=== PATIENT | female | born 1995 | race Two or more races ===

== ENCOUNTER → 2022-11-20 | Outpatient (CLI) | payer OTHER, SELFPAY ==
--- NOTE | 2022-11-20 12:00 | LES_PTH ---
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 Salivary gland tissue with mild chronic inflammation. AM:augie 11/22/2022 MICROSCOPIC DESCRIPTION Slides are reviewed. GROSS DESCRIPTION Received in fixative is one container labeled with the patient's name and designated lip. The specimen consists of multiple irregular fragments of gagnon-pink soft tissue that in aggregate measure 2.0 x 1.5 x 0.3 cm. The specimen is totally submitted in one cassette. / SJ:augie 11/21/2022 TC:3 CPT: 30219
== END | disposition home or self-care (01) ==
LOC: LABSPEC 13:41
PROVIDERS: Referring Provider Dentist Oral and Maxillofacial Surgery; Visit Provider Dentist Oral and Maxillofacial Surgery
DX: R60.9 Edema, unspecified (principal)
CPT/HCPCS: 88304; 88305